=== PATIENT | female | born 1960 | race Caucasian/White ===

== ENCOUNTER 2023-12-22 06:14 | Day surgery (SDC) | payer OTHER ==
[~2023-12-22] VITALS: Ht 177.8 cm; Wt 101.2 kg
[~2023-12-22 06:14] MED LIST: BUPRENORPHINE HC2 MG SL; CELEXA20 MG PO; IBU-200200 MG PO; MIDAZOLAM HCL 5 MG/5 ML VIAL IV PRN; VARENICLINE TART1 MG PO; ZESTRIL10 MG PO; fentaNYL citrate 100 MCG/2 ML VIAL IV PRN
[2023-12-22 06:28] VITALS: BP 171/89
[2023-12-22] MEDS ORDERED: MIDAZOLAM HCL 5 MG/5 ML VIAL ONE ×2 (06:50→07:42)
[2023-12-22] MEDS ORDERED: fentaNYL citrate 100 MCG/2 ML VIAL ONE (06:50)
[2023-12-22] MEDS ORDERED: LACTATED RINGER'S 1,000 ML IV SCH (07:00)
[2023-12-22] MEDS ORDERED: LIDOCAINE HCL 1% 5 ML SDV INJ ONE (07:00)
[2023-12-22] MEDS ORDERED: IBLOOD GLUCOSE TEST STRIP 1 EA TEST VI PRN (07:00)
--- NOTE | 2023-12-22 08:00 | NUR ---
12/22/23 0800 Brit Carpenter [id number] TO PACU IN LL POSITION. EYES CLOSED BUT TALKING. PT DENIES PAIN AND NAUSEA. BREATHING EASY AND UNLABORED. SPO2 >95% ON 3 L O2 VIA NC. PT ENCOURAGED TO PASS GAS.
[2023-12-22 08:59] VITALS: BP 128/71
--- NOTE | 2023-12-22 09:27 | OR ---
[facility] [address], [place] [address] Signed DATE OF OPERATION: 12/22/2023 SURGEON: Sommer Multani MD PREOPERATIVE DIAGNOSIS: Screening colonoscopy. POSTOPERATIVE DIAGNOSES: 1. 5 mm polypoid lesion at 60 cm (left colon). 2. Moderate-sized diverticulum x1. PROCEDURE: Colonoscopy with hot biopsy. ESTIMATED BLOOD LOSS: None. INDICATIONS: Glenda is a 63-year-old, obese female, asked to see me for initial screening colonoscopy. She has had various abdominal complaints over the years. She just got through some diarrhea that is now resolved. CT scan of the abdomen and pelvis on March 2023 showed her fatty liver. She has no other lower GI complaints. There is no family history of colon cancer or polyps. She reminded me that I helped her with his colonoscopy. Consequently, she is very familiar with this process. I gave her our brochure on colonoscopy. She understands the nature of the test. There is risk including, but not limited to gas bloating, crampy abdominal pain, bleeding, perforation requiring surgery, and missed diagnosis. We also reviewed the written instructions for her bowel prep line by line. We also reviewed the need for IV sedation. She does take on a daily basis. She also uses citalopram. I had warned her that our Versed and fentanyl might not be enough. She might have to be rescheduled with an anesthesia provider. She also understands that an adult person has to take her home afterwards. She had expressed understanding and wished to proceed. PROCEDURE IN DETAIL: Glenda was taken into our endoscopy suite and placed in the left lateral decubitus position. She was given a total of 12 mg of Versed and 200 mcg of fentanyl. Unfortunately, it is very easy to pass the scope. Even then she awoke multiple times during the procedure. Her prep was quite excellent. We could easily see the appendiceal orifice and the ileocecal valve. The scope was then slowly withdrawn. We took several pictures throughout for photodocumentation. The middle of her colon showed Electronically Signed By: SOMMER MULTANI MD 12/22/23 0927 PATIENT NAME: GLENDA ROMANO OPERATIVE REPORT DATE OF : 62 REPORT #: [id number] PHYSICIAN: SOMMER MULTANI MD PCP: NICOLLE LERMA REPORT IS CONFIDENTIAL AND NOT TO BE RELEASED WITHOUT AUTHORIZATION [facility] [address], [place] [address] Signed just a single moderate-sized diverticulum. She had one tiny polypoid lesion at 60 cm. This was easily removed and destroyed completely with the hot biopsy forceps. There was no diverticulosis in the sigmoid colon. Once in the rectum, the scope was retroflexed and really very minimal if any internal hemorrhoid tissue. After this, the gas was suctioned out and the colonoscope removed. Glenda overall tolerated the procedure well. She was immediately awake and talking to us on withdrawal of the scope. RECOMMENDATIONS: I will see Glenda back in my office in the weeks ahead to review her pathology results. She would probably be better served with monitored anesthesia care and propofol infusion in the future. Sommer Multani MD ALB/MODL /[id number] cc: MD Nicolle Patel Copies: SOMMER MULTANI MD, ELIZABETH ~ Electronically Signed By: SOMMER MULTANI MD 12/22/23 0927 PATIENT NAME: GLENDA ROMANO OPERATIVE REPORT DATE OF : 62 REPORT #: [id number] PHYSICIAN: SOMMER MULTANI MD PCP: NICOLLE LERMA REPORT IS CONFIDENTIAL AND NOT TO BE RELEASED WITHOUT AUTHORIZATION
--- NOTE | 2023-12-24 14:50 | PATH ---
[facility] [address] [facility] [place], [place] [address] Signed SPECIMEN(S): A COLON POLYP AT 60 CM SPECIMEN SOURCE: A. COLON POLYP AT 60 CM CLINICAL HISTORY: Screening. Diverticulum. FINAL PATHOLOGIC DIAGNOSIS: Colon, polyp at 60 cm, biopsy: - Benign colonic mucosa with prominent intramucosal lymphoid aggregate, 1 fragment. - Additional fragments of colonic epithelium are within normal limits. - There is no evidence of neoplasia. COMMENT: Sections of colonic tissue demonstrate a benign intramucosal lymphoid aggregate. Intramucosal lymphoid aggregates can sometimes appear as polyps endoscopically. They have no clinical significance. There is no evidence of dysplasia or malignancy. [facility] MICROSCOPIC EXAMINATION: Histologic sections of all submitted blocks are examined by light microscopy. These findings, together with the gross examination, support the pathologic diagnosis. GROSS DESCRIPTION: The specimen, labeled and designated "Aquiles, colon polyp at 60 cm," is received in formalin and consists of three mcnulty soft tissue fragments, ranging from 0.2-0.3 cm. Entirely submitted in (A1). VB (under the direct supervision of a pathologist) The Gross Description was prepared using a voice recognition system. The report was reviewed for accuracy; however, sound-alike word errors, addition and/or deletions may occur. If there is any question about this report, please contact Client Services. ADDITIONAL NOTES: Immunohistochemical and/or in situ hybridization studies if performed in this case included appropriate positive controls that reacted as expected. This test was developed and its performance PATIENT NAME: GLENDA ROMANO [facility] DATE OF : 62 REPORT #: [id number] PHYSICIAN: JOSE VILLANUEVA PCP: DERIC LERMA REPORT IS CONFIDENTIAL AND NOT TO BE RELEASED WITHOUT AUTHORIZATION [facility] [address] [place], [place] [address] Signed characteristics determined by [email or web address]. It has not been cleared or approved by the U.S. Food and Drug Administration. The FDA has determined that such clearance or approval is not necessary. This test is used for clinical purposes. It should not be regarded as investigational or for research. [email or web address] is certified under the Clinical Laboratory Improvement Amendments of 1988 (CLIA) as qualified to perform high complexity clinical laboratory testing. PERFORMING LABORATORY: Technical component was performed by [email or web address], [address] [place] [id number] (CLIA# [id number]). Professional interpretation was performed by [facility], [address] [place] [address] (CLIA#:[id number]). Diagnostician: Pilo Lockett MD Pathologist Electronically Signed 12/24/2023 Copies: ~ PATIENT NAME: GLENDA ROMANO PATHOLOGY DATE OF : 62 REPORT #: [id number] PHYSICIAN: JOSE VILLANUEVA PCP: DERIC LERMA REPORT IS CONFIDENTIAL AND NOT TO BE RELEASED WITHOUT AUTHORIZATION
== END 2023-12-22 08:57 | disposition home or self-care (01) ==
LOC: DS 06:14
PROVIDERS: ATTEND Colon & Rectal Surgery
PROC: 0DBE8ZX Excision of Large Intestine, Via Natural or Artificial Opening Endoscopic, Diagnostic (ICD-10-PCS; principal; 2023-12-22 09:45)
DX: Z12.11 Encounter for screening for malignant neoplasm of colon (principal); K57.30 Diverticulosis of large intestine without perforation or abscess without bleeding; K63.89 Other specified diseases of intestine; E66.9 Obesity, unspecified; I10 Essential (primary) hypertension; K76.0 Fatty (change of) liver, not elsewhere classified; F17.200 Nicotine dependence, unspecified, uncomplicated; F32.9 Major depressive disorder, single episode, unspecified
CPT/HCPCS: 99153; G0500; J2250; J3010; J7121